=== PATIENT | male | born 1995 | race Caucasian/White ===

== ENCOUNTER 2018-03-09 22:10 | Emergency (ER) | payer BC ==
[~2018-03-09] VITALS: Ht 182.9 cm; Wt 79.5 kg
[2018-03-09 23:53] VITALS: BP 130/81
[2018-03-10] MEDS ORDERED: IBUPROFEN 800 MG TABLET PO ONE
[2018-03-10] MEDS ORDERED: AMOX TR/POT CLAV 875 MG/125 MG TABLET PO ONE
== END 2018-03-10 00:58 | disposition short-term general hospital (02) ==
LOC: EMS 22:11
DX: S02.2XXA Fracture of nasal bones, initial encounter for closed fracture (principal); Y04.0XXA Assault by unarmed brawl or fight, initial encounter; Y93.89 Activity, other specified; Y92.89 Other specified places as the place of occurrence of the external cause; Y99.8 Other external cause status
CPT/HCPCS: 70160; 99285